=== PATIENT | male | born 1970 | race Caucasian/White ===

== ENCOUNTER 2017-10-16 17:03 | Emergency (ER) | payer MEDICARE, OTHER ==
[~2017-10-16] VITALS: Ht 188 cm; Wt 102.5 kg
[~2017-10-16 17:03] MED LIST: ALBIPROI; ALBU90OI INH; ALBU90OI6; ALBU90OI61 INH; ASCO500 PO; ASPI325; ASPI325 PO; ATOR40TA PO; Ativan1 MG PO; BENZ.5 PO; BENZ1 PO; BENZ2 PO; BENZTROPINE PO; BUPR100; BUSP5; Benztropine Me0.5 MG; CELE100; CLON.1 PO; CYCL10 PO; DEXL60CA3 PO; DIPATR; DIVA500EC; DULO30 PO; DULO60; DULO60 PO; ERGO400 PO; ESCI10; ESCI20; ESOM20 PO; FAMO20; FAMO20 PO; FAMO40; FISH OIL 1,0001 EAC1 PO; FISH1000; FISH1000 PO; FLAX; FLUOXETINE PO; GABA100; GABA300; GABA300 PO; GABA800 PO; GEMF600 PO; HALO.5 PO; HYDACE5 PO; HYDPAM25; HYDPAM50; HYDPAM50 PO; IBUP800; IBUP800 PO; LITH300C PO; LORA1 PO; LORATADINE10 MG PO; Loxapine10 MG PO; MILN100T; MILN100T PO; NORT10 PO; NORT25 PO; Naprosyn500 MG PO; Nortriptyline H25 MG PO; ORACONA; OXCA300; PRAZ2 PO; PROM25; PYRI100 PO; QUET25; QUET300; RANI150; RANI150 PO; RISP1 PO; ROPI2 PO; RXLORA1 PO; RXTRAM50 PO; SERT50; TIOT18; TIOT18 INH; TOCO400; TRAM50; TRAM50 PO; TRIH2; TRILEPTAL; UBID10; UBID100 PO; Vistaril50 MG PO; Vitamin D400 UNI1 PO; Zithromax250 MG PO; [UNRECOGNIZED DRUG - REMARK]; [UNRECOGNIZED DRUG - REMARK]; [UNRECOGNIZED DRUG - REMARK]
[2017-10-16 17:40] LABS: BASOPHILS ABSOLUTE AUTO 0.09 K/mm3 (0.00-0.23); BASOPHILS PERCENT AUTO 1 % (0-2); EOSINOPHILS ABSOLUTE AUTO 0.34 K/mm3 (0.00-0.68); EOSINOPHILS PERCENT AUTO 5 % (0-6); Hematocrit 46.2 % (37.0-53.0); Hemoglobin 15.5 g/dL (13.5-17.5); IMMATURE GRAN ABSOLUTE AUTO 0.04 K/mm3 (0.00-0.10); IMMATURE GRAN PERCENT AUTO 1 % (0-1); LYMPHOCYTES ABSOLUTE AUTO 2.15 K/mm3 (0.84-5.20); LYMPHOCYTES PERCENT AUTO 31 % (21-46); MONOCYTES ABSOLUTE AUTO 0.78 K/mm3 (0.16-1.47); MONOCYTES PERCENT AUTO 11 % (4-13); Mean Corpuscular HGB 30.9 pg (26.0-34.0); Mean Corpuscular HGB Conc 33.5 g/dL (31.5-36.5); Mean Corpuscular Volume 92 fL (80-100); Mean Platelet Volume 9.5 fL (9.1-12.4); NEUTROPHILS ABSOLUTE AUTO 3.49 K/mm3 (1.96-9.15); NEUTROPHILS PERCENT AUTO 51 % (41-73); Platelet Count 246 K/mm3 (150-400); RDW Coefficient Variation 12.3 % (11.7-14.2); RDW Standard Deviation 41.8 fL (35.1-46.3); Red Blood Cell Count 5.01 M/mm3 (4.30-5.90); White Blood Cell Count 6.89 K/mm3 (4.00-11.30)
[2017-10-16 17:54] LABS: Alanine Aminotransfer (ALT/SGP 27 U/L (12-78); Albumin, Blood 3.6 g/dL (3.4-5.0); Albumin/Globulin Ratio 1.1 (0.8-1.8); Alk Phos 47 U/L (50-136); Anion Gap 9 mmol/L (6-16); Aspartate Aminotrans (AST/SGOT 33 U/L (12-37); Bilirubin, Total 0.4 mg/dL (0.1-1.0); Blood Urea Nitrogen 21 mg/dL (8-24); Bun/Creatinine Ratio 23.9 (12.0-20.0); CO2, Blood 22 mmol/L (21-32); Calcium, Blood 8.2 mg/dL (8.5-10.1); Chloride, Blood 108 mmol/L (98-108); Creatinine, Blood 0.88 mg/dL (0.60-1.20); Ethanol (Alcohol), Blood, Med <3 mg/dL; Globulin, Blood 3.2 g/dL (2.2-4.0); Glomerular Filtration Rate >60 (60-); Glucose, Blood 98 mg/dL (70-99); Potassium, Blood 4.4 mmol/L (3.5-5.5); Sodium, Blood 139 mmol/L (136-145); Total Protein, Blood 6.8 g/dL (6.4-8.2); Troponin I <0.015 ng/mL (0.000-0.040)
[2017-10-16 18:39] LABS: U Amphetamine Screen Not Detected; U Barbituate Screen Not Detected; U Benzodiazapine Screen Not Detected; U Buprenorphine Screen Not Detected; U Cannabinoids Screen Not Detected; U Cocaine Screen Not Detected; U Methadone Screen Not Detected; U Methamphetamine Screen Not Detected; U Opiates Screen Not Detected; U Oxycodone Screen Not Detected; U Phencyclidine Screen Not Detected
[2017-10-16 18:40] LABS: U Propoxyphene Screen Not Detected
[2017-10-16] MEDS ORDERED: Pepcid40 MG PO (19:14)
[2018-08-23] MEDS ORDERED: ALBU90OI INH (15:58)
[2018-08-23] MEDS ORDERED: GABA300 (15:58)
== END 2017-10-16 19:26 | disposition home or self-care (01) ==
LOC: ER 17:03
PROVIDERS: Emergency Medicine; Physician Assistant
DX: R07.9 Chest pain, unspecified (principal); K44.9 Diaphragmatic hernia without obstruction or gangrene; G31.84 Mild cognitive impairment of uncertain or unknown etiology; Z88.8 Allergy status to other drugs, medicaments and biological substances; Z79.899 Other long term (current) drug therapy; Z79.82 Long term (current) use of aspirin; F41.9 Anxiety disorder, unspecified; Z87.891 Personal history of nicotine dependence
CPT/HCPCS: 36415; 71046; 80053; 84484; 85025; 93005; 93010; 96374; 99284; G0480; J1885

== ENCOUNTER 2017-12-04 16:08 | Emergency (ER) | payer MEDICARE, OTHER ==
[~2017-12-04] VITALS: Ht 188 cm; Wt 98.0 kg
[~2017-12-04 16:08] MED LIST changes: +Pepcid40 MG PO
[2017-12-04 16:37] LABS: Source, Urine Clean Catch
[2017-12-04 16:57] LABS: Bilirubin, Urine Neg (Neg); Blood, Urine Neg (Neg); Glucose Qualitative, Urine Neg (Neg); Ketones, Urine Neg (Neg); Leukocyte Esterase, Urine Neg (Neg); Nitrite, Urine Neg (Neg); Protein, Urine Neg (Neg); Specific Gravity, Urine 1.025 (1.003-1.022); Urobilinogen, Urine NORM (Normal)
[2017-12-04 16:58] LABS: BASOPHILS ABSOLUTE AUTO 0.11 K/mm3 (0.00-0.23); BASOPHILS PERCENT AUTO 1 % (0-2); EOSINOPHILS ABSOLUTE AUTO 0.33 K/mm3 (0.00-0.68); EOSINOPHILS PERCENT AUTO 4 % (0-6); Hematocrit 47.2 % (37.0-53.0); Hemoglobin 16.1 g/dL (13.5-17.5); IMMATURE GRAN ABSOLUTE AUTO 0.03 K/mm3 (0.00-0.10); IMMATURE GRAN PERCENT AUTO 0 % (0-1); LYMPHOCYTES ABSOLUTE AUTO 2.03 K/mm3 (0.84-5.20); LYMPHOCYTES PERCENT AUTO 25 % (21-46); MONOCYTES ABSOLUTE AUTO 0.94 K/mm3 (0.16-1.47); MONOCYTES PERCENT AUTO 12 % (4-13); Mean Corpuscular HGB Conc 34.1 g/dL (31.5-36.5); Mean Corpuscular Volume 91 fL (80-100); Mean Platelet Volume 9.5 fL (9.1-12.4); NEUTROPHILS ABSOLUTE AUTO 4.56 K/mm3 (1.96-9.15); NEUTROPHILS PERCENT AUTO 57 % (41-73); Platelet Count 263 K/mm3 (150-400); RDW Coefficient Variation 12.6 % (11.7-14.2); RDW Standard Deviation 41.8 fL (35.1-46.3); Red Blood Cell Count 5.19 M/mm3 (4.30-5.90)
[2017-12-04 17:08] LABS: Alanine Aminotransfer (ALT/SGP 32 U/L (12-78); Albumin, Blood 3.6 g/dL (3.4-5.0); Albumin/Globulin Ratio 1.1 (0.8-1.8); Alk Phos 59 U/L (50-136); Anion Gap 11 mmol/L (6-16); Aspartate Aminotrans (AST/SGOT 39 U/L (12-37); Bilirubin, Total 0.3 mg/dL (0.1-1.0); Blood Urea Nitrogen 21 mg/dL (8-24); Bun/Creatinine Ratio 25.7 (12.0-20.0); CO2, Blood 17 mmol/L (21-32); Calcium, Blood 8.4 mg/dL (8.5-10.1); Chloride, Blood 106 mmol/L (98-108); Creatinine, Blood 0.82 mg/dL (0.60-1.20); Globulin, Blood 3.4 g/dL (2.2-4.0); Glomerular Filtration Rate >60 (60-); Glucose, Blood 117 mg/dL (70-99); Potassium, Blood 4.1 mmol/L (3.5-5.5); Sodium, Blood 134 mmol/L (136-145)
[2017-12-04 17:09] LABS: Appearance, Urine Clear (Clear); Color, Urine Yellow (P-Yellow)
[2018-08-23] MEDS ORDERED: GABA300 (15:58)
[2018-08-23] MEDS ORDERED: ALBU90OI INH (15:58)
== END 2017-12-04 18:18 | disposition home or self-care (01) ==
LOC: ER 16:08
PROVIDERS: Emergency Medicine
DX: R10.11 Right upper quadrant pain (principal); K21.9 Gastro-esophageal reflux disease without esophagitis; E11.9 Type 2 diabetes mellitus without complications
CPT/HCPCS: 36415; 76705; 80053; 81003; 83690; 85025; 93005; 93010; 99284

== ENCOUNTER 2018-01-06 14:27 | Observation (INO) | payer MEDICARE, OTHER ==
[~2018-01-06] VITALS: Ht 180.3 cm; Wt 99.4 kg
[2018-01-06 14:54] LABS: BASOPHILS ABSOLUTE AUTO 0.04 K/mm3 (0.00-0.23); BASOPHILS PERCENT AUTO 1 % (0-2); EOSINOPHILS ABSOLUTE AUTO 0.12 K/mm3 (0.00-0.68); EOSINOPHILS PERCENT AUTO 1 % (0-6); Hematocrit 51.3 % (37.0-53.0); Hemoglobin 17.3 g/dL (13.5-17.5); IMMATURE GRAN ABSOLUTE AUTO 0.03 K/mm3 (0.00-0.10); IMMATURE GRAN PERCENT AUTO 0 % (0-1); LYMPHOCYTES ABSOLUTE AUTO 2.29 K/mm3 (0.84-5.20); LYMPHOCYTES PERCENT AUTO 27 % (21-46); MONOCYTES ABSOLUTE AUTO 0.77 K/mm3 (0.16-1.47); MONOCYTES PERCENT AUTO 9 % (4-13); Mean Corpuscular HGB 31.2 pg (26.0-34.0); Mean Corpuscular HGB Conc 33.7 g/dL (31.5-36.5); Mean Corpuscular Volume 92 fL (80-100); Mean Platelet Volume 9.5 fL (9.1-12.4); NEUTROPHILS ABSOLUTE AUTO 5.11 K/mm3 (1.96-9.15); NEUTROPHILS PERCENT AUTO 61 % (41-73); Platelet Count 269 K/mm3 (150-400); RDW Coefficient Variation 13.1 % (11.7-14.2); RDW Standard Deviation 44.3 fL (35.1-46.3); Red Blood Cell Count 5.55 M/mm3 (4.30-5.90); White Blood Cell Count 8.36 K/mm3 (4.00-11.30)
[2018-01-06 15:16] LABS: Alanine Aminotransfer (ALT/SGP 34 U/L (12-78); Albumin, Blood 4.1 g/dL (3.4-5.0); Albumin/Globulin Ratio 1.2 (0.8-1.8); Alk Phos 65 U/L (50-136); Anion Gap 6 mmol/L (6-16); Aspartate Aminotrans (AST/SGOT 38 U/L (12-37); Bilirubin, Total 0.6 mg/dL (0.1-1.0); Blood Urea Nitrogen 10 mg/dL (8-24); CO2, Blood 24 mmol/L (21-32); Calcium, Blood 9.2 mg/dL (8.5-10.1); Chloride, Blood 111 mmol/L (98-108); Creatinine, Blood 0.77 mg/dL (0.60-1.20); Ethanol (Alcohol), Blood, Med <3 mg/dL; Globulin, Blood 3.3 g/dL (2.2-4.0); Glomerular Filtration Rate >60 (60-); Glucose, Blood 111 mg/dL (70-99); Potassium, Blood 4.1 mmol/L (3.5-5.5); Salicylate <1.7 mg/dL (2.8-20.0); Sodium, Blood 141 mmol/L (136-145); Total Protein, Blood 7.4 g/dL (6.4-8.2)
[2018-01-06 15:27] LABS: Acetaminophen, Random <2.0 ug/mL (10.0-30.0); Troponin I <0.015 ng/mL (0.000-0.040)
[2018-01-06 15:28] LABS: Thyroid Stimulating Hormone 0.283 uIU/mL (0.360-4.800)
[2018-01-06 16:43] LABS: Source, Urine Clean Catch
[2018-01-06 16:52] LABS: Bilirubin, Urine Neg (Neg); Blood, Urine Neg (Neg); Glucose Qualitative, Urine Neg (Neg); Ketones, Urine Neg (Neg); Leukocyte Esterase, Urine Neg (Neg); Nitrite, Urine Neg (Neg); Protein, Urine Neg (Neg); Urobilinogen, Urine NORM (Normal)
[2018-01-06 16:58] LABS: Appearance, Urine Clear (Clear); Color, Urine Yellow (P-Yellow)
[2018-01-06 17:03] LABS: U Amphetamine Screen Not Detected; U Barbituate Screen Not Detected; U Benzodiazapine Screen Not Detected; U Buprenorphine Screen Not Detected; U Cannabinoids Screen Not Detected; U Cocaine Screen Not Detected; U Methadone Screen Not Detected; U Methamphetamine Screen Not Detected; U Opiates Screen Not Detected; U Phencyclidine Screen Not Detected
[2018-01-06 17:04] LABS: U Oxycodone Screen Not Detected; U Propoxyphene Screen Not Detected
[2018-01-06 21:47] LABS: Free Thyroxine 0.89 ng/dL (0.70-1.60)
[2018-01-07 04:46] LABS: BASOPHILS ABSOLUTE AUTO 0.06 K/mm3 (0.00-0.23); BASOPHILS PERCENT AUTO 1 % (0-2); EOSINOPHILS ABSOLUTE AUTO 0.23 K/mm3 (0.00-0.68); EOSINOPHILS PERCENT AUTO 4 % (0-6); Hematocrit 47.7 % (37.0-53.0); IMMATURE GRAN ABSOLUTE AUTO 0.02 K/mm3 (0.00-0.10); IMMATURE GRAN PERCENT AUTO 0 % (0-1); LYMPHOCYTES ABSOLUTE AUTO 1.61 K/mm3 (0.84-5.20); LYMPHOCYTES PERCENT AUTO 26 % (21-46); MONOCYTES ABSOLUTE AUTO 0.59 K/mm3 (0.16-1.47); MONOCYTES PERCENT AUTO 10 % (4-13); Mean Corpuscular HGB 30.9 pg (26.0-34.0); Mean Corpuscular HGB Conc 33.5 g/dL (31.5-36.5); Mean Corpuscular Volume 92 fL (80-100); Mean Platelet Volume 9.7 fL (9.1-12.4); NEUTROPHILS PERCENT AUTO 59 % (41-73); Platelet Count 260 K/mm3 (150-400); RDW Coefficient Variation 12.9 % (11.7-14.2); RDW Standard Deviation 43.8 fL (35.1-46.3); Red Blood Cell Count 5.17 M/mm3 (4.30-5.90); White Blood Cell Count 6.11 K/mm3 (4.00-11.30)
[2018-01-07 05:03] LABS: Alanine Aminotransfer (ALT/SGP 30 U/L (12-78); Albumin, Blood 3.5 g/dL (3.4-5.0); Albumin/Globulin Ratio 1.1 (0.8-1.8); Alk Phos 54 U/L (50-136); Anion Gap 8 mmol/L (6-16); Aspartate Aminotrans (AST/SGOT 27 U/L (12-37); Bilirubin, Total 0.7 mg/dL (0.1-1.0); Blood Urea Nitrogen 8 mg/dL (8-24); Bun/Creatinine Ratio 10.4 (12.0-20.0); CO2, Blood 26 mmol/L (21-32); Calcium, Blood 8.7 mg/dL (8.5-10.1); Chloride, Blood 108 mmol/L (98-108); Creatinine, Blood 0.77 mg/dL (0.60-1.20); Globulin, Blood 3.1 g/dL (2.2-4.0); Glomerular Filtration Rate >60 (60-); Glucose, Blood 92 mg/dL (70-99); Potassium, Blood 3.8 mmol/L (3.5-5.5); Sodium, Blood 142 mmol/L (136-145); Total Protein, Blood 6.6 g/dL (6.4-8.2)
== END 2018-01-07 13:20 | disposition home or self-care (01) ==
LOC: ER 14:27 → MEDS 14:28 → ENPENDDIS 01-07 09:52 → MEDS 01-07 13:20
PROVIDERS: Emergency Medicine; Internal Medicine
DX: R41.82 Altered mental status, unspecified (principal); M79.7 Fibromyalgia; K58.9 Irritable bowel syndrome, unspecified; J45.909 Unspecified asthma, uncomplicated; K21.9 Gastro-esophageal reflux disease without esophagitis; I10 Essential (primary) hypertension; R94.6 Abnormal results of thyroid function studies; Z79.82 Long term (current) use of aspirin; Z79.899 Other long term (current) drug therapy; Z88.8 Allergy status to other drugs, medicaments and biological substances
CPT/HCPCS: 36415; 70450; 71045; 80053; 81003; 84439; 84443; 84484; 85025; 93005; 93010; 94640; 94760; 96361; 96372; 96374; 99285; G0378; G0480; J1650; J2405; J7030; Q3014

== ENCOUNTER 2018-02-09 15:33 | Emergency (ER) | payer MEDICARE ==
[~2018-02-09] VITALS: Ht 188 cm; Wt 99.8 kg
== END 2018-02-09 21:11 | disposition home or self-care (01) ==
LOC: ER 15:33
DX: R25.1 Tremor, unspecified (principal); Z88.8 Allergy status to other drugs, medicaments and biological substances; Z79.899 Other long term (current) drug therapy; F41.9 Anxiety disorder, unspecified; Z87.891 Personal history of nicotine dependence

== ENCOUNTER 2018-05-31 12:53 | Emergency (ER) | payer MEDICARE, OTHER ==
[~2018-05-31] VITALS: Ht 188 cm; Wt 99.3 kg
== END 2018-05-31 15:19 | disposition home or self-care (01) ==
LOC: ER 12:53
DX: M25.551 Pain in right hip (principal); Z88.8 Allergy status to other drugs, medicaments and biological substances; Z79.899 Other long term (current) drug therapy; F41.9 Anxiety disorder, unspecified; Z87.891 Personal history of nicotine dependence
CPT/HCPCS: 96372; 99283; J1885

== ENCOUNTER 2018-09-20 10:10 | Inpatient (IN) | payer OTHER ==
[~2018-09-20] VITALS: Ht 188 cm; Wt 93.0 kg
[2018-09-20 11:26] LABS: BASOPHILS ABSOLUTE AUTO 0.06 K/mm3 (0.00-0.23); BASOPHILS PERCENT AUTO 1 % (0-2); EOSINOPHILS ABSOLUTE AUTO 0.02 K/mm3 (0.00-0.68); EOSINOPHILS PERCENT AUTO 0 % (0-6); Hematocrit 37.5 % (37.0-53.0); Hemoglobin 12.5 g/dL (13.5-17.5); IMMATURE GRAN ABSOLUTE AUTO 0.05 K/mm3 (0.00-0.10); IMMATURE GRAN PERCENT AUTO 0 % (0-1); LYMPHOCYTES ABSOLUTE AUTO 0.99 K/mm3 (0.84-5.20); LYMPHOCYTES PERCENT AUTO 8 % (21-46); MONOCYTES ABSOLUTE AUTO 1.43 K/mm3 (0.16-1.47); MONOCYTES PERCENT AUTO 11 % (4-13); Mean Corpuscular HGB 30.1 pg (26.0-34.0); Mean Corpuscular HGB Conc 33.3 g/dL (31.5-36.5); Mean Corpuscular Volume 90 fL (80-100); Mean Platelet Volume 9.5 fL (9.1-12.4); NEUTROPHILS ABSOLUTE AUTO 10.01 K/mm3 (1.96-9.15); NEUTROPHILS PERCENT AUTO 80 % (41-73); Platelet Count 263 K/mm3 (150-400); RDW Coefficient Variation 12.4 % (11.7-14.2); RDW Standard Deviation 41.1 fL (35.1-46.3); Red Blood Cell Count 4.15 M/mm3 (4.30-5.90); White Blood Cell Count 12.56 K/mm3 (4.00-11.30)
[2018-09-20 11:47] LABS: Alanine Aminotransfer (ALT/SGP 29 U/L (12-78); Albumin, Blood 3.3 g/dL (3.4-5.0); Albumin/Globulin Ratio 0.9 (0.8-1.8); Alk Phos 120 U/L (50-136); Anion Gap 8 mmol/L (6-16); Aspartate Aminotrans (AST/SGOT 29 U/L (12-37); Blood Urea Nitrogen 10 mg/dL (8-24); Bun/Creatinine Ratio 11.3 (12.0-20.0); CO2, Blood 23 mmol/L (21-32); Calcium, Blood 8.1 mg/dL (8.5-10.1); Chloride, Blood 100 mmol/L (98-108); Creatinine, Blood 0.88 mg/dL (0.60-1.20); Globulin, Blood 3.5 g/dL (2.2-4.0); Glomerular Filtration Rate >60 (60-); Glucose, Blood 122 mg/dL (70-99); Potassium, Blood 3.9 mmol/L (3.5-5.5); Sodium, Blood 131 mmol/L (136-145); Total Protein, Blood 6.8 g/dL (6.4-8.2)
[2018-09-20 11:59] LABS: BODY FLUID RBC 0.162 (0-0); RBC Count, Synovial Fluid 162000 /mm3 (0-0)
[2018-09-20 12:15] LABS: WBC Count, Synovial Fluid 177520 /mm3 (0-180)
[2018-09-20 12:16] LABS: Appearance, Synovial Fluid Cloudy (Clear); Color, Synovial Fluid Red (None-P Yel)
[2018-09-20 12:36] LABS: Lymphs, Synovial Fluid 1 % (0-15); Monocytes/Macrophages, Synovia 4 % (0-65); Neutrophils, Synovial Fluid 95 % (0-24)
[2018-09-20 12:37] LABS: Crystals, Synovial Fluid Not Seen (Not Seen)
[2018-09-20 12:39] LABS: Body Fluid Crystals NEG (NEGATIVE)
[2018-09-20 12:58] LABS: Glucose, Body Fluid <1 mg/dL
--- NOTE | 2018-09-20 17:09 | NUR ---
SHIFT SUMMARY PATIENT ADMITTED FOR L ELBOW ABCESS OR BURSITIS. PATIENT HAS BEEN PLEASANT, HAS SOME DEFICITS MENTALLY AND DOES NOT TAKE CARE OF HIMSELF WELL. THE PATIENT SMELLED OF URINE WHEN HE CAME TO THE UNIT, WHILE GIVING A BEDBATH THE PATIENT WAS UNDRESSING AND HIS UNDERGARMENTS WERE SOILED AND LOOKED THOUGH THEY HAD BEEN SOILED FOR QUITE SOME TIME AND MORE THAN ONCE. THE PATIENT ANSWERS APPROPRIATELY ALTHOUGH SLOWLY. HAS RECIEVED HIS FLU SHOT, AND ALSO HIS LOVENOX. TAKES ALL MEDICATIONS. PATIENT HAS SIMONE DRAIN IN HIS LEFT ELBOW PLACED BY DR. DELAROSA TODAY BEFORE COMING TO THE FLOOR. DRAINING WELL, PATIENT STRUGGLES WITH REMEMBERING THAT THE DRAIN IS THERE. HE FORGETS TO TAKE THE DRAIN WITH HIM. WILL REMIND THE PATIENT.
[2018-09-21 03:58] LABS: BASOPHILS ABSOLUTE AUTO 0.07 K/mm3 (0.00-0.23); BASOPHILS PERCENT AUTO 1 % (0-2); EOSINOPHILS PERCENT AUTO 3 % (0-6); Hemoglobin 12.1 g/dL (13.5-17.5); IMMATURE GRAN ABSOLUTE AUTO 0.03 K/mm3 (0.00-0.10); IMMATURE GRAN PERCENT AUTO 0 % (0-1); LYMPHOCYTES ABSOLUTE AUTO 1.57 K/mm3 (0.84-5.20); LYMPHOCYTES PERCENT AUTO 22 % (21-46); MONOCYTES ABSOLUTE AUTO 1.12 K/mm3 (0.16-1.47); MONOCYTES PERCENT AUTO 15 % (4-13); Mean Corpuscular HGB 31.1 pg (26.0-34.0); Mean Corpuscular HGB Conc 33.6 g/dL (31.5-36.5); Mean Corpuscular Volume 93 fL (80-100); Mean Platelet Volume 9.1 fL (9.1-12.4); NEUTROPHILS PERCENT AUTO 59 % (41-73); Platelet Count 269 K/mm3 (150-400); RDW Coefficient Variation 12.6 % (11.7-14.2); RDW Standard Deviation 42.9 fL (35.1-46.3); Red Blood Cell Count 3.89 M/mm3 (4.30-5.90); White Blood Cell Count 7.29 K/mm3 (4.00-11.30)
[2018-09-21 04:17] LABS: Alanine Aminotransfer (ALT/SGP 23 U/L (12-78); Albumin/Globulin Ratio 0.9 (0.8-1.8); Alk Phos 108 U/L (50-136); Anion Gap 5 mmol/L (6-16); Aspartate Aminotrans (AST/SGOT 20 U/L (12-37); Bilirubin, Total 0.7 mg/dL (0.1-1.0); Blood Urea Nitrogen 12 mg/dL (8-24); Bun/Creatinine Ratio 13.2 (12.0-20.0); CO2, Blood 27 mmol/L (21-32); Calcium, Blood 8.4 mg/dL (8.5-10.1); Chloride, Blood 103 mmol/L (98-108); Creatinine, Blood 0.91 mg/dL (0.60-1.20); Globulin, Blood 3.4 g/dL (2.2-4.0); Glomerular Filtration Rate >60 (60-); Glucose, Blood 97 mg/dL (70-99); Magnesium, Blood 2.2 mg/dL (1.6-2.4); Potassium, Blood 4.2 mmol/L (3.5-5.5); Sodium, Blood 135 mmol/L (136-145); Total Protein, Blood 6.4 g/dL (6.4-8.2)
--- NOTE | 2018-09-21 04:58 | NUR ---
SUMMARY ASPIRATION TO LEFT ELBOW ON 09/20/18 PT HAS DONE WELL THROUGH THE NIGHT. DRSG REMAINS C/D/I. 10 ML SEROSANGUINOUS FLUID NOTED IN SIMONE. PT IS INDEPENDENT IN THE ROOM. TOLERATING PO INTAKE. CALL LIGHT IN REACH, WCTM
--- NOTE | 2018-09-21 17:48 | NUR ---
SHIFT SUMMARY NO ACUTE CHANGES THIS SHIFT. VSS. PT DENIES PAIN TO L ELBOW. LOLA WRAP REMAINS CDI. SIMONE WITH MINIMAL DRAINAGE OUT. PT SBA IN ROOM TO USE THE RESTROOM. BAHMAN REG DIET. USES CALL LIGHT. PLAN IS TO CONTINUE IV ABX AND WAITING CULTURE RESULTS.
--- NOTE | 2018-09-22 06:52 | NUR ---
SUMMARY PT SLEEPING THIS AM. ANTIBIOTICS INFUSING.PT IN NO DISTRESS TONIGHT. PT DID HAVE INCONTINENCE OF URINE TONIGHT.
--- NOTE | 2018-09-22 09:29 | NUR ---
CALLED DR CLIFTON Meyers/ORTHOSTATIC VS.
--- NOTE | 2018-09-22 11:39 | NUR ---
THERAPY WORKING W/PT.
[2018-09-22] MEDS ORDERED: GABA300 PO (11:54)
[2018-09-22] MEDS ORDERED: ACET325 PO (11:55)
[2018-09-22] MEDS ORDERED: CRANBERRY450 MG PO (12:05)
[2018-09-22] MEDS ORDERED: DICL250 PO (12:07)
--- NOTE | 2018-09-22 13:36 | NUR ---
CALLED PRESCRIPTIONS TO [facility].
--- NOTE | 2018-09-22 15:14 | NUR ---
DISCHARGED REVIEWED DC PAPERWORK W/PT. REVIEWED WOUND CARE, MEDICATIONS AND F/U APPOINTMENTS. PT LEFT UNIT IN WC, FATHER WAITING OUT IN PARKING LOT TO GIVE RIDE HOME.
== END 2018-09-22 15:14 | disposition home or self-care (01) | DRG 558 ==
LOC: ER 10:10 → SURS 11:43
PROVIDERS: Physician Assistant; ADMIT Internal Medicine
PROC: 0M9 Bursae and Ligaments, Drainage (ICD-10-PCS; principal; 2018-09-20)
DX: M71.122 Other infective bursitis, left elbow (principal); M79.7 Fibromyalgia; K58.9 Irritable bowel syndrome, unspecified; K21.9 Gastro-esophageal reflux disease without esophagitis; E11.9 Type 2 diabetes mellitus without complications; M19.90 Unspecified osteoarthritis, unspecified site; F25.9 Schizoaffective disorder, unspecified; S50.00XA Contusion of unspecified elbow, initial encounter; Z87.891 Personal history of nicotine dependence; F42.9 Obsessive-compulsive disorder, unspecified; B95.61 Methicillin susceptible Staphylococcus aureus infection as the cause of diseases classified elsewhere
CPT/HCPCS: 20605; 23930; 36415; 73080; 80053; 82945; 82947; 83735; 85025; 85651; 86141; 87070; 87075; 87077; 87147; 87186; 87205; 89051; 89060; 90686; 93306; 94640; 94760; 96365; 97110; 97162; 97530; 99285-25; J0690; J1650; J1885; J3370; J7050

== ENCOUNTER 2018-10-10 08:00 | Day surgery (SDC) | payer OTHER ==
[~2018-10-10 08:00] MED LIST changes: +ACET325 PO; +CRANBERRY450 MG PO; +DICL250 PO
== END 2018-10-10 22:47 | disposition home or self-care (01) ==
LOC: WOUND 08:00
DX: Z48.01 Encounter for change or removal of surgical wound dressing (principal); T81.31XA Disruption of external operation (surgical) wound, not elsewhere classified, initial encounter; M70.22 Olecranon bursitis, left elbow; I10 Essential (primary) hypertension; J44.9 Chronic obstructive pulmonary disease, unspecified; E78.5 Hyperlipidemia, unspecified
CPT/HCPCS: G0463

== ENCOUNTER 2018-10-13 10:15 | Day surgery (SDC) | payer OTHER | END 2018-10-13 22:52 | disposition home or self-care (01) | LOC: WOUND 10:15 | DX: T81.31XA Disruption of external operation (surgical) wound, not elsewhere classified, initial encounter (principal); M70.22 Olecranon bursitis, left elbow | CPT/HCPCS: G0463 ==

== ENCOUNTER 2018-10-17 11:03 | Day surgery (SDC) | payer OTHER | END 2018-10-17 22:56 | disposition home or self-care (01) | LOC: WOUND 11:03 | DX: T81.31XA Disruption of external operation (surgical) wound, not elsewhere classified, initial encounter (principal); M70.22 Olecranon bursitis, left elbow; J44.9 Chronic obstructive pulmonary disease, unspecified; I10 Essential (primary) hypertension; F42.9 Obsessive-compulsive disorder, unspecified; E11.9 Type 2 diabetes mellitus without complications | CPT/HCPCS: G0463 ==

== ENCOUNTER 2018-10-20 10:06 | Day surgery (SDC) | payer OTHER ==
[2018-10-20] MEDS ORDERED: Norco 5-325 Ta1 EACH PO (13:38)
== END 2018-10-20 12:22 | disposition home or self-care (01) ==
LOC: WOUND 10:06
DX: T81.31XA Disruption of external operation (surgical) wound, not elsewhere classified, initial encounter (principal); M70.22 Olecranon bursitis, left elbow
CPT/HCPCS: G0463

== ENCOUNTER 2018-10-20 12:01 | Emergency (ER) | payer OTHER ==
[~2018-10-20] VITALS: Ht 188 cm; Wt 90.3 kg
[2018-10-20 13:00] LABS: Calcium, Ionized (POC) 1.19 mmol/L (1.10-1.46); Chloride (POC) 106 mmol/L (98-108); Creatinine (POC) 0.8 mg/dL (0.8-1.3); Glucose (ISTAT POC) 132 mg/dL (70-99); Hemoglobin (POC) 14.3 g/dL (13.5-17.5); Potassium (POC) 4.5 mmol/L (3.5-5.5); Sodium (POC) 138 mmol/L (135-148); Total CO2 (POC) 21 mmol/L (21-32)
[2018-10-20] MEDS ORDERED: Norco 5-325 Ta1 EACH PO (13:38)
== END 2018-10-20 14:02 | disposition home or self-care (01) ==
LOC: ER 12:01
PROVIDERS: Physician Assistant
DX: S22.42XA Multiple fractures of ribs, left side, initial encounter for closed fracture (principal); K21.9 Gastro-esophageal reflux disease without esophagitis; E11.9 Type 2 diabetes mellitus without complications; Z79.899 Other long term (current) drug therapy; Z88.8 Allergy status to other drugs, medicaments and biological substances; W18.2XXA Fall in (into) shower or empty bathtub, initial encounter; Y92.002 Bathroom of unspecified non-institutional (private) residence as the place of occurrence of the external cause
CPT/HCPCS: 36415; 71101; 80047; 85014; 99283-25

== ENCOUNTER 2018-10-24 08:31 | Day surgery (SDC) | payer OTHER ==
[~2018-10-24 08:31] MED LIST changes: +Norco 5-325 Ta1 EACH PO
== END 2018-10-24 22:42 | disposition home or self-care (01) ==
LOC: WOUND 08:31
DX: T81.31XA Disruption of external operation (surgical) wound, not elsewhere classified, initial encounter (principal); S51.002A Unspecified open wound of left elbow, initial encounter; M70.22 Olecranon bursitis, left elbow; B95.61 Methicillin susceptible Staphylococcus aureus infection as the cause of diseases classified elsewhere; J44.9 Chronic obstructive pulmonary disease, unspecified; I10 Essential (primary) hypertension; F25.1 Schizoaffective disorder, depressive type; E78.5 Hyperlipidemia, unspecified; E11.9 Type 2 diabetes mellitus without complications
CPT/HCPCS: G0463

== ENCOUNTER 2018-10-31 08:30 | Day surgery (SDC) | payer OTHER | END 2018-10-31 22:41 | disposition home or self-care (01) | LOC: WOUND 08:30 | DX: Z48.01 Encounter for change or removal of surgical wound dressing (principal); T81.31XA Disruption of external operation (surgical) wound, not elsewhere classified, initial encounter; M70.22 Olecranon bursitis, left elbow; J44.9 Chronic obstructive pulmonary disease, unspecified; I10 Essential (primary) hypertension; E78.5 Hyperlipidemia, unspecified; E11.9 Type 2 diabetes mellitus without complications | CPT/HCPCS: G0463 ==

== ENCOUNTER 2019-02-02 10:25 | Emergency (ER) | payer OTHER ==
[~2019-02-02] VITALS: Ht 188 cm; Wt 91.6 kg
== END 2019-02-02 11:59 | disposition home or self-care (01) ==
LOC: ER 10:25
DX: M70.21 Olecranon bursitis, right elbow (principal); F41.9 Anxiety disorder, unspecified; M79.7 Fibromyalgia; Z88.8 Allergy status to other drugs, medicaments and biological substances; Z79.899 Other long term (current) drug therapy; Z87.891 Personal history of nicotine dependence
CPT/HCPCS: 73080; 99283-25

== ENCOUNTER 2019-02-13 21:16 | Emergency (ER) | payer OTHER ==
[~2019-02-13] VITALS: Ht 188 cm; Wt 90.7 kg
[2019-02-13 21:58] LABS: BASOPHILS ABSOLUTE AUTO 0.06 K/mm3 (0.00-0.23); BASOPHILS PERCENT AUTO 1 % (0-2); EOSINOPHILS ABSOLUTE AUTO 0.09 K/mm3 (0.00-0.68); EOSINOPHILS PERCENT AUTO 1 % (0-6); Hematocrit 49.8 % (37.0-53.0); Hemoglobin 16.3 g/dL (13.5-17.5); IMMATURE GRAN ABSOLUTE AUTO 0.08 K/mm3 (0.00-0.10); IMMATURE GRAN PERCENT AUTO 1 % (0-1); LYMPHOCYTES PERCENT AUTO 11 % (21-46); MONOCYTES ABSOLUTE AUTO 0.63 K/mm3 (0.16-1.47); MONOCYTES PERCENT AUTO 6 % (4-13); Mean Corpuscular HGB 29.6 pg (26.0-34.0); Mean Corpuscular HGB Conc 32.7 g/dL (31.5-36.5); Mean Corpuscular Volume 91 fL (80-100); Mean Platelet Volume 9.8 fL (9.1-12.4); NEUTROPHILS PERCENT AUTO 81 % (41-73); Platelet Count 350 K/mm3 (150-400); RDW Coefficient Variation 12.8 % (11.7-14.2); RDW Standard Deviation 42.6 fL (35.1-46.3); White Blood Cell Count 10.76 K/mm3 (4.00-11.30)
[2019-02-13 22:16] LABS: Alanine Aminotransfer (ALT/SGP 32 U/L (12-78); Albumin, Blood 3.5 g/dL (3.4-5.0); Albumin/Globulin Ratio 0.9 (0.8-1.8); Alk Phos 89 U/L (50-136); Anion Gap 8 mmol/L (6-16); Aspartate Aminotrans (AST/SGOT 47 U/L (12-37); Bilirubin, Total 0.6 mg/dL (0.1-1.0); Blood Urea Nitrogen 9 mg/dL (8-24); CO2, Blood 26 mmol/L (21-32); Calcium, Blood 9.2 mg/dL (8.5-10.1); Chloride, Blood 107 mmol/L (98-108); Creatinine, Blood 0.69 mg/dL (0.60-1.20); Globulin, Blood 4.1 g/dL (2.2-4.0); Glomerular Filtration Rate >60 (60-); Glucose, Blood 93 mg/dL (70-99); International Normalized Ratio 1.05; Prothrombin Time Results 11.1 Sec (9.7-11.5); Sodium, Blood 141 mmol/L (136-145); Total Protein, Blood 7.6 g/dL (6.4-8.2)
[2019-02-13 22:17] LABS: Ethanol (Alcohol), Blood, Med <3 mg/dL
[2019-02-13 22:54] LABS: U Amphetamine Screen Not Detected; U Barbituate Screen Not Detected; U Benzodiazapine Screen Not Detected; U Buprenorphine Screen Not Detected; U Cannabinoids Screen Not Detected; U Cocaine Screen Not Detected; U Methadone Screen Not Detected; U Methamphetamine Screen Not Detected; U Opiates Screen Not Detected; U Oxycodone Screen Not Detected; U Phencyclidine Screen Not Detected; U Propoxyphene Screen Not Detected
== END 2019-02-14 00:20 | disposition short-term general hospital (02) ==
LOC: ER 21:16
PROVIDERS: Emergency Medicine
DX: I62.9 Nontraumatic intracranial hemorrhage, unspecified (principal); R91.8 Other nonspecific abnormal finding of lung field; Z88.8 Allergy status to other drugs, medicaments and biological substances; Z79.899 Other long term (current) drug therapy; F41.9 Anxiety disorder, unspecified; Z87.891 Personal history of nicotine dependence
CPT/HCPCS: 36415; 51701; 70450; 71045; 80053; 82947; 85025; 85610; 93005; 93010; 96365-59; 96375-59; 99285-25; G0480; J2060

== ENCOUNTER → 2020-01-16 | Outpatient (CLI) | payer OTHER ==
[2020-01-16 14:03] LABS: Valproic Acid 49.9 ug/mL (50.0-100.0)
== END | disposition home or self-care (01) ==
LOC: LAB 12:46 → LAB SHORT 12:46
PROVIDERS: Psychiatry & Neurology Psychiatry
DX: Z51.81 Encounter for therapeutic drug level monitoring (principal); Z79.899 Other long term (current) drug therapy
CPT/HCPCS: 80164

== ENCOUNTER → 2020-05-16 | Outpatient (CLI) | payer OTHER ==
[2020-05-16 13:27] LABS: Valproic Acid 61.8 ug/mL (50.0-100.0)
== END | disposition home or self-care (01) ==
LOC: LAB SHORT 10:08 → LAB 10:08
PROVIDERS: Psychiatry & Neurology Psychiatry
DX: Z51.81 Encounter for therapeutic drug level monitoring (principal); Z79.899 Other long term (current) drug therapy
CPT/HCPCS: 80164

== ENCOUNTER → 2020-09-18 | Outpatient (CLI) | payer OTHER ==
[2020-09-18 15:39] LABS: Valproic Acid 53.2 ug/mL (50.0-100.0)
== END | disposition home or self-care (01) ==
LOC: LAB SHORT 13:00
PROVIDERS: Psychiatry & Neurology Psychiatry
DX: Z51.81 Encounter for therapeutic drug level monitoring (principal); Z79.899 Other long term (current) drug therapy
CPT/HCPCS: 80164

== ENCOUNTER → 2021-01-15 | Outpatient (CLI) | payer OTHER | END | disposition home or self-care (01) | LOC: LAB SHORT 12:33 | PROVIDERS: Psychiatry & Neurology Psychiatry | DX: Z51.81 Encounter for therapeutic drug level monitoring (principal); Z79.899 Other long term (current) drug therapy | CPT/HCPCS: 80164 ==

== ENCOUNTER → 2021-01-27 | Outpatient (CLI) | payer OTHER ==
[2021-01-27 19:13] LABS: Source, Urine Clean Catch
[2021-01-27 20:00] LABS: Bilirubin, Urine Neg (Neg); Blood, Urine Neg (Neg); Glucose Qualitative, Urine Neg (Neg); Ketones, Urine Neg (Neg); Leukocyte Esterase, Urine Neg (Neg); Nitrite, Urine Neg (Neg); Protein, Urine Neg (Neg); Urobilinogen, Urine NORM (Normal); pH, Urine 6.5 (5.0-8.0)
[2021-01-27 20:31] LABS: Appearance, Urine Clear (Clear); Color, Urine Yellow (P-Yellow)
== END | disposition home or self-care (01) ==
LOC: PLD 15:05 → LAB SHORT 15:05
PROVIDERS: Family Medicine
DX: N39.0 Urinary tract infection, site not specified (principal)
CPT/HCPCS: 81003

== ENCOUNTER → 2021-03-26 | Outpatient (CLI) | payer OTHER | END | disposition home or self-care (01) | LOC: LAB SHORT 07:45 → LAB 07:45 | DX: E87.6 Hypokalemia (principal); E55.9 Vitamin D deficiency, unspecified | CPT/HCPCS: 82306 ==

== ENCOUNTER → 2021-05-16 | Outpatient (CLI) | payer OTHER ==
[2021-05-16 15:00] LABS: Valproic Acid 62.9 ug/mL (50.0-100.0)
== END ==
LOC: LAB SHORT 13:08 → LAB 13:08
PROVIDERS: Psychiatry & Neurology Psychiatry
DX: Z51.81 Encounter for therapeutic drug level monitoring (principal); Z79.899 Other long term (current) drug therapy
CPT/HCPCS: 80164

== ENCOUNTER 2021-06-19 13:53 | Emergency (ER) | payer OTHER ==
[~2021-06-19] VITALS: Ht 188 cm; Wt 127.9 kg
[2021-06-19] MEDS ORDERED: IBUP800 PO (14:31)
[2021-06-19] MEDS ORDERED: DIVA500EC PO (14:31)
[2021-06-19] MEDS ORDERED: PREG150 PO (14:32)
[2021-06-19] MEDS ORDERED: OLAN20 MM (14:32)
[2021-06-19] MEDS ORDERED: Primidone50 MG PO (14:33)
[2021-06-19] MEDS ORDERED: SENN187 PO (14:33)
[2021-06-19] MEDS ORDERED: TOPI50 PO (14:34)
[2021-06-19] MEDS ORDERED: THERA-D2000 UNIT PO (14:35)
[2021-06-19 15:01] LABS: BASOPHILS ABSOLUTE AUTO 0.06 K/mm3 (0.00-0.23); BASOPHILS PERCENT AUTO 1 % (0-2); EOSINOPHILS ABSOLUTE AUTO 0.09 K/mm3 (0.00-0.68); EOSINOPHILS PERCENT AUTO 2 % (0-6); Hematocrit 50.6 % (37.0-53.0); Hemoglobin 16.7 g/dL (13.5-17.5); IMMATURE GRAN ABSOLUTE AUTO 0.07 K/mm3 (0.00-0.10); IMMATURE GRAN PERCENT AUTO 1 % (0-1); LYMPHOCYTES ABSOLUTE AUTO 1.18 K/mm3 (0.84-5.20); LYMPHOCYTES PERCENT AUTO 20 % (21-46); MONOCYTES ABSOLUTE AUTO 0.45 K/mm3 (0.16-1.47); MONOCYTES PERCENT AUTO 8 % (4-13); Mean Corpuscular Volume 94 fL (80-100); Mean Platelet Volume 10.8 fL (9.1-12.4); NEUTROPHILS ABSOLUTE AUTO 4.06 K/mm3 (1.96-9.15); NEUTROPHILS PERCENT AUTO 69 % (41-73); Platelet Count 159 K/mm3 (150-400); RDW Coefficient Variation 12.7 % (11.7-14.2); RDW Standard Deviation 43.7 fL (35.1-46.3); Red Blood Cell Count 5.38 M/mm3 (4.30-5.90); White Blood Cell Count 5.91 K/mm3 (4.00-11.30)
[2021-06-19 15:37] LABS: Alanine Aminotransfer (ALT/SGP 54 U/L (12-78); Albumin, Blood 3.2 g/dL (3.4-5.0); Albumin/Globulin Ratio 0.9 (0.8-1.8); Alk Phos 51 U/L (50-136); Anion Gap 7 mmol/L (6-16); Aspartate Aminotrans (AST/SGOT 42 U/L (12-37); Bilirubin, Direct <0.1 mg/dL (0.0-0.3); Bilirubin, Indirect Unable to Calculate mg/dL (0.1-0.7); Bilirubin, Total 0.4 mg/dL (0.1-1.0); Blood Urea Nitrogen 15 mg/dL (8-24); Bun/Creatinine Ratio 15.7 (12.0-20.0); CO2, Blood 22 mmol/L (21-32); Calcium, Blood 8.7 mg/dL (8.5-10.1); Chloride, Blood 109 mmol/L (98-108); Creatinine, Blood 0.95 mg/dL (0.60-1.20); Globulin, Blood 3.5 g/dL (2.2-4.0); Glomerular Filtration Rate >60 (60-); Glucose, Blood 103 mg/dL (70-99); Potassium, Blood 4.3 mmol/L (3.5-5.5); Sodium, Blood 138 mmol/L (136-145); Total Protein, Blood 6.7 g/dL (6.4-8.2); Troponin I <0.015 ng/mL (0.000-0.040)
[2021-06-19] MEDS ORDERED: PRED20 PO (19:35)
== END 2021-06-19 20:00 | disposition home or self-care (01) ==
LOC: ER 13:53
PROVIDERS: Student in an Organized Health Care Education/Training Program
DX: J45.901 Unspecified asthma with (acute) exacerbation (principal); R42 Dizziness and giddiness; Z88.8 Allergy status to other drugs, medicaments and biological substances; Z79.899 Other long term (current) drug therapy
CPT/HCPCS: 36415; 71046; 80048; 80076; 83690; 83880; 84484; 85025; 93005; 93010; 94640; 94644; 96374; 99285-25; J2405; J7030; J7512

== ENCOUNTER → 2021-06-25 | Outpatient (CLI) | payer OTHER ==
[~2021-06-25] MED LIST changes: +DIVA500EC PO; +OLAN20 MM; +PRED20 PO; +PREG150 PO; +Primidone50 MG PO; +SENN187 PO; +THERA-D2000 UNIT PO; +TOPI50 PO
== END | disposition home or self-care (01) ==
LOC: LAB SHORT 08:20
DX: E55.9 Vitamin D deficiency, unspecified (principal)
CPT/HCPCS: 82306

== ENCOUNTER → 2021-11-05 | Outpatient (CLI) | payer OTHER ==
[2021-11-05 20:20] LABS: Appearance, Urine Clear (Clear); Bilirubin, Urine Neg (Neg); Blood, Urine Neg (Neg); Color, Urine Yellow (P-Yellow); Glucose Qualitative, Urine Neg (Neg); Ketones, Urine Neg (Neg); Leukocyte Esterase, Urine Neg (Neg); Nitrite, Urine Neg (Neg); Protein, Urine Neg (Neg); Specific Gravity, Urine 1.005 (1.003-1.022); Urobilinogen, Urine NORM (Normal)
== END ==
LOC: LAB SHORT 11:30 → LAB 11:30
PROVIDERS: Family Medicine
DX: N39.0 Urinary tract infection, site not specified (principal)
CPT/HCPCS: 81003

== ENCOUNTER → 2021-11-11 | Outpatient (CLI) | payer OTHER ==
[2021-11-11 09:47] LABS: BASOPHILS ABSOLUTE AUTO 0.05 K/mm3 (0.00-0.23); BASOPHILS PERCENT AUTO 1 % (0-2); EOSINOPHILS ABSOLUTE AUTO 0.19 K/mm3 (0.00-0.68); EOSINOPHILS PERCENT AUTO 4 % (0-6); Hematocrit 47.3 % (37.0-53.0); Hemoglobin 16.2 g/dL (13.5-17.5); IMMATURE GRAN ABSOLUTE AUTO 0.02 K/mm3 (0.00-0.10); IMMATURE GRAN PERCENT AUTO 0 % (0-1); LYMPHOCYTES ABSOLUTE AUTO 1.88 K/mm3 (0.84-5.20); LYMPHOCYTES PERCENT AUTO 36 % (21-46); MONOCYTES ABSOLUTE AUTO 0.52 K/mm3 (0.16-1.47); MONOCYTES PERCENT AUTO 10 % (4-13); Mean Corpuscular HGB 31.5 pg (26.0-34.0); Mean Corpuscular HGB Conc 34.2 g/dL (31.5-36.5); Mean Corpuscular Volume 92 fL (80-100); Mean Platelet Volume 10.6 fL (9.1-12.4); NEUTROPHILS ABSOLUTE AUTO 2.56 K/mm3 (1.96-9.15); NEUTROPHILS PERCENT AUTO 49 % (41-73); Platelet Count 200 K/mm3 (150-400); RDW Coefficient Variation 12.2 % (11.7-14.2); RDW Standard Deviation 41.7 fL (35.1-46.3); Red Blood Cell Count 5.15 M/mm3 (4.30-5.90); White Blood Cell Count 5.22 K/mm3 (4.00-11.30)
[2021-11-11 10:01] LABS: Alanine Aminotransfer (ALT/SGP 23 U/L (12-78); Albumin, Blood 3.3 g/dL (3.4-5.0); Albumin/Globulin Ratio 1.2 (0.8-1.8); Alk Phos 43 U/L (50-136); Anion Gap 5 mmol/L (6-16); Aspartate Aminotrans (AST/SGOT 12 U/L (12-37); Bilirubin, Total 0.5 mg/dL (0.1-1.0); Blood Urea Nitrogen 15 mg/dL (8-24); Bun/Creatinine Ratio 17.3 (12.0-20.0); CO2, Blood 26 mmol/L (21-32); Calcium, Blood 8.4 mg/dL (8.5-10.1); Chloride, Blood 113 mmol/L (98-108); Creatinine, Blood 0.87 mg/dL (0.60-1.20); Globulin, Blood 2.8 g/dL (2.2-4.0); Glomerular Filtration Rate >60 (60-); Glucose, Blood 91 mg/dL (70-99); Potassium, Blood 4.7 mmol/L (3.5-5.5); Sodium, Blood 144 mmol/L (136-145); Thyroid Stimulating Hormone 0.725 uIU/mL (0.360-4.800); Total Protein, Blood 6.1 g/dL (6.4-8.2)
== END ==
LOC: LAB 07:45 → LAB SHORT 07:45
PROVIDERS: Family Medicine
DX: E03.9 Hypothyroidism, unspecified (principal); I10 Essential (primary) hypertension; E11.9 Type 2 diabetes mellitus without complications
CPT/HCPCS: 80053; 84443; 85025

== ENCOUNTER → 2022-09-23 | Outpatient (CLI) | payer OTHER ==
[~2022-09-23] MED LIST changes: +Amlodipine Bes2.5 MG PO; +HYDHCL25; +LOPE2C PO; +ONDA4
[2022-09-23 14:43] LABS: Valproic Acid 42.8 ug/mL (50.0-100.0)
== END | disposition home or self-care (01) ==
LOC: LAB SHORT 09:57
PROVIDERS: Psychiatry & Neurology Psychiatry
DX: Z51.81 Encounter for therapeutic drug level monitoring (principal)
CPT/HCPCS: 80164

== ENCOUNTER → 2022-12-30 | Outpatient (CLI) | payer OTHER ==
[2022-12-30 14:56] LABS: Valproic Acid 39.7 ug/mL (50.0-100.0)
== END | disposition home or self-care (01) ==
LOC: LAB SHORT 07:47 → LAB 07:47
PROVIDERS: Psychiatry & Neurology Psychiatry
DX: Z51.81 Encounter for therapeutic drug level monitoring (principal); Z79.899 Other long term (current) drug therapy
CPT/HCPCS: 80164

== ENCOUNTER → 2023-05-27 | Outpatient (CLI) | payer OTHER ==
[2023-05-27 14:53] LABS: Valproic Acid 36.1 ug/mL (50.0-100.0)
== END | disposition home or self-care (01) ==
LOC: LAB SHORT 10:32 → LAB 10:32
PROVIDERS: Psychiatry & Neurology Psychiatry
DX: Z51.81 Encounter for therapeutic drug level monitoring (principal); Z79.899 Other long term (current) drug therapy
CPT/HCPCS: 80164

== ENCOUNTER → 2023-10-06 | Outpatient (CLI) | payer OTHER ==
[~2023-10-06] MED LIST changes: +DERMACINRX FOL1 EAC2 PO; -HYDHCL25; +HYDHCL25 PO; +OMEP20ER PO
[2023-10-06 15:12] LABS: Valproic Acid 64.3 ug/mL (50.0-100.0)
== END ==
LOC: LAB 09:53 → LAB SHORT 09:53
PROVIDERS: Psychiatry & Neurology Psychiatry
DX: Z51.81 Encounter for therapeutic drug level monitoring (principal)
CPT/HCPCS: 80164

== ENCOUNTER 2023-10-14 08:18 | Emergency (ER) | payer OTHER ==
[~2023-10-14] VITALS: Ht 188 cm; Wt 131.5 kg
[2023-10-14 10:03] LABS: Source, Urine Clean Catch
[2023-10-14 10:16] LABS: BASOPHILS ABSOLUTE AUTO 0.09 K/mm3 (0.00-0.23); BASOPHILS PERCENT AUTO 2 % (0-2); EOSINOPHILS ABSOLUTE AUTO 0.19 K/mm3 (0.00-0.68); EOSINOPHILS PERCENT AUTO 4 % (0-6); Hemoglobin 15.7 g/dL (13.5-17.5); IMMATURE GRAN ABSOLUTE AUTO 0.07 K/mm3 (0.00-0.10); IMMATURE GRAN PERCENT AUTO 1 % (0-1); LYMPHOCYTES ABSOLUTE AUTO 1.64 K/mm3 (0.84-5.20); LYMPHOCYTES PERCENT AUTO 31 % (21-46); MONOCYTES ABSOLUTE AUTO 0.61 K/mm3 (0.16-1.47); MONOCYTES PERCENT AUTO 12 % (4-13); Mean Corpuscular HGB 31.4 pg (26.0-34.0); Mean Corpuscular HGB Conc 34.9 g/dL (31.5-36.5); Mean Corpuscular Volume 90 fL (80-100); Mean Platelet Volume 9.9 fL (9.1-12.4); NEUTROPHILS ABSOLUTE AUTO 2.65 K/mm3 (1.96-9.15); NEUTROPHILS PERCENT AUTO 51 % (41-73); Platelet Count 233 K/mm3 (150-400); RDW Coefficient Variation 12.1 % (11.7-14.2); RDW Standard Deviation 39.8 fL (35.1-46.3); White Blood Cell Count 5.25 K/mm3 (4.00-11.30)
[2023-10-14 10:20] LABS: Bilirubin, Urine Neg (Neg); Blood, Urine Neg (Neg); Glucose Qualitative, Urine Neg (Neg); Ketones, Urine Neg (Neg); Leukocyte Esterase, Urine Neg (Neg); Nitrite, Urine Neg (Neg); Protein, Urine Neg (Neg); Urobilinogen, Urine NORM (Normal)
[2023-10-14 10:30] LABS: Appearance, Urine Clear (Clear); Color, Urine Yellow (P-Yellow)
[2023-10-14 10:34] LABS: Albumin, Blood 3.4 g/dL (3.4-5.0); Albumin/Globulin Ratio 1.1 (0.8-1.8); Bilirubin, Total 0.3 mg/dL (0.1-1.0); Bun/Creatinine Ratio 5.4 (12.0-20.0); Calcium, Blood 8.5 mg/dL (8.5-10.1); Creatinine, Blood 0.92 mg/dL (0.60-1.20); Potassium, Blood 4.2 mmol/L (3.5-5.5); Total Protein, Blood 6.4 g/dL (6.4-8.2)
[2023-10-14 11:10] VITALS: BP 118/85
== END 2023-10-14 11:11 | disposition home or self-care (01) ==
LOC: ER 08:18
PROVIDERS: Physician Assistant
DX: M79.651 Pain in right thigh (principal); Z87.891 Personal history of nicotine dependence; M79.7 Fibromyalgia
CPT/HCPCS: 80053; 81003; 85025; 99283; A9270

== ENCOUNTER → 2023-12-20 | Outpatient (CLI) | payer OTHER ==
[2023-12-21 15:53] LABS: Source, Urine Clean Catch
[2023-12-21 17:04] LABS: Appearance, Urine Clear (Clear); Bilirubin, Urine Neg (Neg); Blood, Urine Neg (Neg); Color, Urine Yellow (P-Yellow); Glucose Qualitative, Urine Neg (Neg); Ketones, Urine Neg (Neg); Leukocyte Esterase, Urine Neg (Neg); Nitrite, Urine Neg (Neg); Protein, Urine Neg (Neg); Specific Gravity, Urine 1.005 (1.003-1.022); Urobilinogen, Urine NORM (Normal)
== END ==
LOC: LAB 11:00 → LAB SHORT 11:00
PROVIDERS: Family Medicine
DX: N39.0 Urinary tract infection, site not specified (principal)
CPT/HCPCS: 81003

== ENCOUNTER 2024-03-29 08:14 | Inpatient (IN) | payer OTHER ==
[~2024-03-29] VITALS: Ht 185.4 cm; Wt 142.9 kg
[~2024-03-29 08:14] MED LIST changes: +DIVA250ER PO; -DIVA500EC PO; -HYDHCL25 PO; +HYDPAM25 PO; +LORA.5 PO; +OLAN10 PO; -OLAN20 MM
[2024-03-29] MEDS ORDERED: Ipratropium/Albuterol SulF 2.5-0.5MG/3 ML Amp INH ONE (09:45)
[2024-03-29 10:10] LABS: BASOPHILS ABSOLUTE AUTO 0.07 K/mm3 (0.00-0.23); BASOPHILS PERCENT AUTO 1 % (0-2); EOSINOPHILS ABSOLUTE AUTO 0.16 K/mm3 (0.00-0.68); EOSINOPHILS PERCENT AUTO 2 % (0-6); Hematocrit 46.2 % (37.0-53.0); IMMATURE GRAN ABSOLUTE AUTO 0.14 K/mm3 (0.00-0.10); IMMATURE GRAN PERCENT AUTO 2 % (0-1); LYMPHOCYTES ABSOLUTE AUTO 1.45 K/mm3 (0.84-5.20); LYMPHOCYTES PERCENT AUTO 20 % (21-46); MONOCYTES ABSOLUTE AUTO 0.78 K/mm3 (0.16-1.47); MONOCYTES PERCENT AUTO 11 % (4-13); Mean Corpuscular HGB Conc 34.6 g/dL (31.5-36.5); Mean Corpuscular Volume 90 fL (80-100); Mean Platelet Volume 9.1 fL (9.1-12.4); NEUTROPHILS ABSOLUTE AUTO 4.68 K/mm3 (1.96-9.15); NEUTROPHILS PERCENT AUTO 64 % (41-73); Platelet Count 253 K/mm3 (150-400); RDW Coefficient Variation 12.5 % (11.7-14.2); RDW Standard Deviation 41.2 fL (35.1-46.3); Red Blood Cell Count 5.16 M/mm3 (4.30-5.90); White Blood Cell Count 7.28 K/mm3 (4.00-11.30)
[2024-03-29 10:27] LABS: Base Excess Venous -1.5 mmol/L; Bicarbonate Venous 22.1 mmol/L (24.0-30.0); PCO2 Venous 48 mmHg (38-42); pH Blood Venous 7.32 (7.34-7.37)
[2024-03-29 10:39] LABS: Albumin, Blood 3.7 g/dL (3.4-5.0); Bilirubin, Total 0.4 mg/dL (0.1-1.0); Bun/Creatinine Ratio 7.7 (12.0-20.0); Creatinine, Blood 0.91 mg/dL (0.60-1.20); Globulin, Blood 3.7 g/dL (2.2-4.0); Potassium, Blood 4.9 mmol/L (3.5-5.5); Total Protein, Blood 7.4 g/dL (6.4-8.2)
[2024-03-29] MEDS ORDERED: Docusate Sodium/Senna 1 Tab PO PRN (12:15)
[2024-03-29] MEDS ORDERED: LORazepam 2 MG/ML 1ML Injection IV PRN (12:15)
[2024-03-29] MEDS ORDERED: Acetaminophen 650 MG Supp PR PRN (12:20)
[2024-03-29] MEDS ORDERED: Bisacodyl 10 MG Supp PR PRN (12:20)
[2024-03-29] MEDS ORDERED: Ondansetron 4 MG TAB PO PRN (12:25)
[2024-03-29] MEDS ORDERED: Magnesium Hydroxide Conc 10 ML UDC PO PRN (12:25)
[2024-03-29] MEDS ORDERED: Zolpidem Tartrate 5 MG Tab PO PRN (12:25)
[2024-03-29] MEDS ORDERED: Topiramate 25 MG Tab PO SCH (13:00)
[2024-03-29] MEDS ORDERED: OLOPATADINE HC2.5 ML BOTHEYES (13:53)
[2024-03-29] MEDS ORDERED: BUDESONIDE-FO10.2 G3 INH (13:53)
[2024-03-29] MEDS ORDERED: Cetirizine HCl10 MG PO (13:54)
[2024-03-29] MEDS ORDERED: TAMSULOSIN HCL0.4 M1 PO (13:57)
[2024-03-29] MEDS ORDERED: Divalproex Sodium 125 MG CAP PO SCH (14:00)
[2024-03-29 14:42] VITALS: BP 143/92
[2024-03-29] MEDS ORDERED: Ipratropium/Albuterol SulF 2.5-0.5MG/3 ML Amp INH SCH (15:00)
[2024-03-29] MEDS ORDERED: Divalproex Sodium 500 MG TABCR PO SCH (15:05)
[2024-03-29] MEDS ORDERED: Primidone 50 MG Tab PO SCH ×2 (16:00→21:00)
--- NOTE | 2024-03-29 16:20 | NUR ---
ADMIT PT ADMITTED TODAY. ORIENTED TO ROOM. BEVERAGE PROVIDED. TELE IN PLACE. RUNNING SINUS TACH AT 103 WHEN PLACED. PT DENIES PAIN. RT NOTIFIED OF WHEEZINESS AND BREATHING TREATMENT REQUESTED. PT VISITING [facility] OPERATOR IN ROOM. CALL LIGHT IN REACH. CALLING FOR ASSISTANCE PRIOR TO GETTING OOB
[2024-03-29] MEDS ORDERED: DULCOLAX400 MG/5 M PO (16:34)
[2024-03-29] MEDS ORDERED: ONDA4ODT MM (16:34)
--- NOTE | 2024-03-29 17:26 | NUR ---
SHIFT SUMMARY PT SET UP WITH CONT PULSE OX. CPAP ORDER PLACED PATIENT ORDERS FROM [facility] STATE THAT HE USES ONE. PT STATES HE HAS NOT USED ONE IN A WHILE, BUE WILL IF STAFF IS WANTING HIM TWO. PT IS CONT/INCONT OF URINE. CALLS FOR ASSISTANCE WITH URINAL. TELE IN PLACE-RUNNING NSR. PT HAS HARCH NON-PRODUCTIVE COUGH. BREATHING TREATMENTS STARTED PER RT. [facility] MED REC FAXED AND UPDATED IN THE COMPUTER. NO OTHER ACUTE CHANGES IN ASSESSMENT AT THIS TIME.
[2024-03-29] MEDS ORDERED: Acetaminophen325 M1 PO (17:27)
[2024-03-29] MEDS ORDERED: VITAMIN D5000 UNIT PO (17:27)
[2024-03-29] MEDS ORDERED: ALBU8HFA2 INH (17:28)
[2024-03-29] MEDS ORDERED: BISA10S PR (17:28)
[2024-03-29] MEDS ORDERED: LOPE2C PO (17:30)
[2024-03-29] MEDS ORDERED: HYDPAM25 PO (17:30)
[2024-03-29] MEDS ORDERED: LORA.5 PO (17:31)
--- NOTE | 2024-03-29 17:54 | NUR ---
COUGH PT C/O COUGH. TESSALON VON ADDED PER DR. JEFFERSON WELL GUAIFENESIN 600 MG BID.
[2024-03-29] MEDS ORDERED: Benzonatate 100 MG Cap PO PRN (17:55)
[2024-03-29 20:06] VITALS: BP 149/97
[2024-03-29] MEDS ORDERED: GuaiFENesin 600 MG TabCR PO SCH (21:00)
[2024-03-29] MEDS ORDERED: Lactobacil 2-S.Thermo-Bifido 1 1 Cap PO SCH (21:00)
[2024-03-29] MEDS ORDERED: Famotidine 20 MG Tab PO SCH (21:00)
[2024-03-29] MEDS ORDERED: Enoxaparin 120 MG/0.8 ML SYR SC SCH (21:00)
[2024-03-29] MEDS ORDERED: OLANZapine 10 MG Tab PO SCH (21:00)
[2024-03-29] MEDS ORDERED: Acetaminophen 325 MG TABLET PO PRN (22:11)
[2024-03-30 05:20] LABS: Hematocrit 43.3 % (37.0-53.0); Hemoglobin 15.2 g/dL (13.5-17.5); Mean Corpuscular HGB 31.1 pg (26.0-34.0); Mean Corpuscular HGB Conc 35.1 g/dL (31.5-36.5); Mean Corpuscular Volume 89 fL (80-100); Mean Platelet Volume 9.5 fL (9.1-12.4); Platelet Count 292 K/mm3 (150-400); RDW Coefficient Variation 12.7 % (11.7-14.2); RDW Standard Deviation 41.1 fL (35.1-46.3); Red Blood Cell Count 4.88 M/mm3 (4.30-5.90); White Blood Cell Count 6.66 K/mm3 (4.00-11.30)
[2024-03-30 05:39] VITALS: BP 146/91
[2024-03-30 05:44] LABS: Bun/Creatinine Ratio 10.2 (12.0-20.0); Calcium, Blood 8.5 mg/dL (8.5-10.1); Creatinine, Blood 0.88 mg/dL (0.60-1.20); Magnesium, Blood 1.8 mg/dL (1.6-2.4); Potassium, Blood 4.3 mmol/L (3.5-5.5)
--- NOTE | 2024-03-30 06:51 | NUR ---
SUMMARY- PT REMAINS WHEEZY WITH HACKING COUGH. PT REPORTS DYSPNEA W EXERTION. PT INCONTINET AT TIMES. PT WEARING A PULL UP. PT DOES AMBULATE TO BATHROOM WITH SBA. PT DENIES CX PAIN W/ SOB. PT DID REPORT DISCOMFORT POST LOVENOX INJECTION. PT REMAINS SPO2 >90'S ON ROOM AIR. PROVIDER CALLED AND ORDERED ABG TO BE CANCEL PER RT RECOMMENDATION. CALL LIGHT IN REACH AND PT CALLS APPROPIATELY.
[2024-03-30 07:07] VITALS: BP 142/90
[2024-03-30] MEDS ORDERED: Rivaroxaban 10 MG Tab PO SCH (09:00)
[2024-03-30] MEDS ORDERED: AmLODIPine Besylate 5 MG Tab PO SCH (09:00)
--- NOTE | 2024-03-30 09:00 | NUR ---
pt laying in bed awake a/ox4, forgetful, cooperative with care, follows commands well, reports some rib pain, tylenol given for that, takes po meds without diff, lungs are course with exp wheezing t/o and harsh cough, on cont ox, cpap at night, on r/a, hrr, tele in place running sr with pvc's per monitor, see strip, no edema noted, ppp+2, cap refill< 3 sec, vs stable, afebrile, piv to rac, site is clear and patent, btx4, abd flat soft nontender, voids without diff, skin c/w/d, maew, rabia, call light in reach.
--- NOTE | 2024-03-30 11:57 | NUR ---
"Spiritual Care Attempted | Pt. Request Pt. is sitting on the side of his bed when he intially welcomed my visit. After introductions the Pt. graciously declines spiritual care, but verbalized gratitude forthe spiritual care attempt."
[2024-03-30 15:37] VITALS: BP 141/79
--- NOTE | 2024-03-30 18:48 | NUR ---
pt resting quietly this after noon, gets himself up in room, will go back to [facility] tomorrow after xarelto is administered. no acute changes this shift. call light in reach.
[2024-03-30 19:50] VITALS: BP 143/91
[2024-03-31 03:05] VITALS: BP 146/98
[2024-03-31 07:16] VITALS: BP 130/95
[2024-03-31] MEDS ORDERED: GUAI600T33 PO (11:15)
[2024-03-31] MEDS ORDERED: PRED20 PO (11:16)
[2024-03-31] MEDS ORDERED: IPRAT-ALBUT 0.5-3 ML INH (11:16)
[2024-03-31] MEDS ORDERED: XARELTO20 MG PO (11:17)
--- NOTE | 2024-03-31 13:08 | NUR ---
PATIENT DISCHARGE: PATIENT DISCHARGED TO HOME ([facility]) THIS SHIFT. MEDICATION RECONCILIATION COMPLETED; MED LIST PROVIDED IN DISCHARGE PACKET FOR [facility]. PATIENT TRANSPORTED TO EXIT BY AMBULANCE PERSONNEL WITH WHEELCHAIR AT 1306. PATIENT DEPARTED [facility] VIA WHEELCHAIR TRANSPORT.
== END 2024-03-31 13:08 | disposition home or self-care (01) | DRG 176 ==
LOC: ER 08:14 → MEDS 12:19 → ENPENDDIS 03-31 11:08 → MEDS 03-31 13:08
PROVIDERS: Emergency Medicine; ADMIT Hospitalist
DX: I26.94 Multiple subsegmental thrombotic pulmonary emboli without acute cor pulmonale (principal); Z68.41 Body mass index [BMI] 40.0-44.9, adult; J44.1 Chronic obstructive pulmonary disease with (acute) exacerbation; E66.9 Obesity, unspecified; M79.7 Fibromyalgia; F20.9 Schizophrenia, unspecified; E11.9 Type 2 diabetes mellitus without complications; K58.9 Irritable bowel syndrome, unspecified; G47.30 Sleep apnea, unspecified; F42.9 Obsessive-compulsive disorder, unspecified; Z79.899 Other long term (current) drug therapy; Z98.890 Other specified postprocedural states
CPT/HCPCS: 36415; 71045; 71260; 80048; 80053; 82803; 83735; 83880; 84145; 85025; 85027; 85379; 94640; 94660; 94664; 94761; 94762; 99285-25; A9270; J1650; Q9967

== ENCOUNTER 2024-04-17 08:20 | Emergency (ER) | payer OTHER ==
[~2024-04-17] VITALS: Ht 188 cm; Wt 140.2 kg
[~2024-04-17 08:20] MED LIST changes: +ALBU8HFA2 INH; +Acetaminophen325 M1 PO; +BISA10S PR; +BUDESONIDE-FO10.2 G3 INH; +Cetirizine HCl10 MG PO; +DULCOLAX400 MG/5 M PO; +GUAI600T33 PO; +IPRAT-ALBUT 0.5-3 ML INH; +OLOPATADINE HC2.5 ML BOTHEYES; +ONDA4ODT MM; +TAMSULOSIN HCL0.4 M1 PO; +VITAMIN D5000 UNIT PO; +XARELTO20 MG PO
[2024-04-17] MEDS ORDERED: Ketorolac Tromethamine 15mg Vial IV ONE (08:50)
[2024-04-17 08:57] LABS: BASOPHILS ABSOLUTE AUTO 0.05 K/mm3 (0.00-0.23); BASOPHILS PERCENT AUTO 1 % (0-2); EOSINOPHILS ABSOLUTE AUTO 0.15 K/mm3 (0.00-0.68); EOSINOPHILS PERCENT AUTO 3 % (0-6); Hematocrit 48.4 % (37.0-53.0); Hemoglobin 16.3 g/dL (13.5-17.5); IMMATURE GRAN ABSOLUTE AUTO 0.03 K/mm3 (0.00-0.10); IMMATURE GRAN PERCENT AUTO 1 % (0-1); LYMPHOCYTES ABSOLUTE AUTO 1.75 K/mm3 (0.84-5.20); LYMPHOCYTES PERCENT AUTO 36 % (21-46); MONOCYTES ABSOLUTE AUTO 0.51 K/mm3 (0.16-1.47); MONOCYTES PERCENT AUTO 11 % (4-13); Mean Corpuscular HGB 30.6 pg (26.0-34.0); Mean Corpuscular HGB Conc 33.7 g/dL (31.5-36.5); Mean Corpuscular Volume 91 fL (80-100); NEUTROPHILS ABSOLUTE AUTO 2.32 K/mm3 (1.96-9.15); NEUTROPHILS PERCENT AUTO 48 % (41-73); Platelet Count 251 K/mm3 (150-400); RDW Standard Deviation 43.7 fL (35.1-46.3); Red Blood Cell Count 5.33 M/mm3 (4.30-5.90); White Blood Cell Count 4.81 K/mm3 (4.00-11.30)
[2024-04-17 09:05] LABS: Albumin, Blood 3.4 g/dL (3.4-5.0); Bilirubin, Total 0.6 mg/dL (0.1-1.0); Bun/Creatinine Ratio 7.6 (12.0-20.0); Calcium, Blood 8.8 mg/dL (8.5-10.1); Creatinine, Blood 0.79 mg/dL (0.60-1.20); Globulin, Blood 3.5 g/dL (2.2-4.0); Potassium, Blood 4.6 mmol/L (3.5-5.5); Total Protein, Blood 6.9 g/dL (6.4-8.2)
[2024-04-17 11:47] LABS: Source, Urine Clean Catch
[2024-04-17 11:57] LABS: Appearance, Urine Clear (Clear); Bilirubin, Urine Neg (Neg); Blood, Urine Neg (Neg); Glucose Qualitative, Urine Neg (Neg); Ketones, Urine Neg (Neg); Leukocyte Esterase, Urine Neg (Neg); Nitrite, Urine Neg (Neg); Protein, Urine Neg (Neg); Urobilinogen, Urine NORM (Normal)
[2024-04-17 11:59] LABS: Color, Urine Pale Yellow (P-Yellow)
[2024-04-17 12:21] VITALS: BP 148/109
== END 2024-04-17 12:20 | disposition home or self-care (01) ==
LOC: ER 08:20
PROVIDERS: Physician Assistant
DX: M54.50 Low back pain, unspecified (principal); E11.9 Type 2 diabetes mellitus without complications; J44.89 Other specified chronic obstructive pulmonary disease; Z87.891 Personal history of nicotine dependence; Z79.51 Long term (current) use of inhaled steroids; Z79.52 Long term (current) use of systemic steroids; Z79.899 Other long term (current) drug therapy; Z88.8 Allergy status to other drugs, medicaments and biological substances
CPT/HCPCS: 74177; 80053; 81003; 83690; 85025; J1885; Q9967

== ENCOUNTER 2024-09-02 09:33 | Emergency (ER) | payer OTHER ==
[~2024-09-02] VITALS: Ht 188 cm; Wt 139.7 kg
[2024-09-02] MEDS ORDERED: Acetaminophen 500 MG Tab PO ONE (10:35)
[2024-09-02] MEDS ORDERED: NS 1,000 ML IV SCH (10:35)
[2024-09-02 10:51] LABS: BASOPHILS ABSOLUTE AUTO 0.04 K/mm3 (0.00-0.23); BASOPHILS PERCENT AUTO 1 % (0-2); EOSINOPHILS PERCENT AUTO 0 % (0-6); Hematocrit 45.3 % (37.0-53.0); IMMATURE GRAN ABSOLUTE AUTO 0.07 K/mm3 (0.00-0.10); IMMATURE GRAN PERCENT AUTO 1 % (0-1); LYMPHOCYTES ABSOLUTE AUTO 0.75 K/mm3 (0.84-5.20); LYMPHOCYTES PERCENT AUTO 10 % (21-46); MONOCYTES ABSOLUTE AUTO 1.25 K/mm3 (0.16-1.47); MONOCYTES PERCENT AUTO 17 % (4-13); Mean Corpuscular HGB 31.3 pg (26.0-34.0); Mean Corpuscular HGB Conc 35.3 g/dL (31.5-36.5); Mean Corpuscular Volume 89 fL (80-100); Mean Platelet Volume 10.2 fL (9.1-12.4); NEUTROPHILS ABSOLUTE AUTO 5.42 K/mm3 (1.96-9.15); NEUTROPHILS PERCENT AUTO 72 % (41-73); Platelet Count 200 K/mm3 (150-400); RDW Coefficient Variation 12.6 % (11.7-14.2); RDW Standard Deviation 41.6 fL (35.1-46.3); Red Blood Cell Count 5.11 M/mm3 (4.30-5.90); White Blood Cell Count 7.53 K/mm3 (4.00-11.30)
[2024-09-02 11:15] LABS: Albumin, Blood 3.3 g/dL (3.4-5.0); Bilirubin, Total 0.4 mg/dL (0.1-1.0); Bun/Creatinine Ratio 7.2 (12.0-20.0); Calcium, Blood 8.5 mg/dL (8.5-10.1); Creatinine, Blood 0.98 mg/dL (0.60-1.20); Globulin, Blood 3.3 g/dL (2.2-4.0); Magnesium, Blood 2.1 mg/dL (1.6-2.4); Phosphorus, Blood 2.4 mg/dL (2.5-4.9); Total Protein, Blood 6.6 g/dL (6.4-8.2)
[2024-09-02 12:13] LABS: Influenza B, PCR NEGATIVE (NEGATIVE); Resp Syncytial Virus, PCR NEGATIVE (NEGATIVE); SARS-Cov-2 (COVID-19) PCR, MMC NEGATIVE (NEGATIVE)
[2024-09-02] MEDS ORDERED: Doxycycline Hyclate 200 MG in Dextrose 5% 500 ML IV ONE (12:15)
[2024-09-02] MEDS ORDERED: CefTRIAXone Sodium 1,000 MG in NS 100 ML IV ONE (12:15)
[2024-09-02] MEDS ORDERED: Doxycycline Hyclate 100 MG in Dextrose 5% 250 ML IV ONE (12:35)
[2024-09-02 13:28] LABS: Influenza A, PCR POSITIVE (NEGATIVE)
[2024-09-02] MEDS ORDERED: Oseltamivir Phosphate 75 MG Cap PO ONE (13:45)
[2024-09-02] MEDS ORDERED: ACET500 PO (13:56)
[2024-09-02] MEDS ORDERED: OSEL75CA PO (13:56)
[2024-09-02] MEDS ORDERED: Ipratropium/Albuterol SulF 2.5-0.5MG/3 ML Amp INH ONE (14:25)
[2024-09-02 14:30] VITALS: BP 164/106
[2024-09-02] MEDS ORDERED: ALBU90OI INH (14:45)
== END 2024-09-02 17:17 | disposition home or self-care (01) ==
LOC: ER 09:33
PROVIDERS: Emergency Medicine
DX: J11.1 Influenza due to unidentified influenza virus with other respiratory manifestations (principal); E11.9 Type 2 diabetes mellitus without complications; J44.89 Other specified chronic obstructive pulmonary disease; J90 Pleural effusion, not elsewhere classified; Z88.8 Allergy status to other drugs, medicaments and biological substances; Z79.899 Other long term (current) drug therapy; Z79.52 Long term (current) use of systemic steroids; Z87.891 Personal history of nicotine dependence
CPT/HCPCS: 0241U; 36415; 71045; 80053; 83605; 83735; 84100; 84145; 85025; 87040; 93005; 93010; 94640; 94664; 96361; 96365; 99285-25; A9270; J0696; J7030; J7060

== ENCOUNTER → 2024-10-11 | Outpatient (CLI) | payer OTHER ==
[~2024-10-11] MED LIST changes: +ACET500 PO; +OSEL75CA PO
[2024-10-12 14:53] LABS: Source, Urine Clean Catch
[2024-10-12 16:57] LABS: Appearance, Urine Clear (Clear); Bilirubin, Urine Neg (Neg); Blood, Urine Neg (Neg); Glucose Qualitative, Urine Neg (Neg); Ketones, Urine Neg (Neg); Leukocyte Esterase, Urine Neg (Neg); Nitrite, Urine Neg (Neg); Protein, Urine Neg (Neg); Specific Gravity, Urine 1.005 (1.003-1.022); Urobilinogen, Urine NORM (Normal)
[2024-10-12 17:06] LABS: Color, Urine Pale Yellow (P-Yellow)
== END ==
LOC: LAB SHORT 10-11 18:00 → LAB 18:00 → LAB SHORT 18:00
PROVIDERS: Family Medicine
DX: N39.0 Urinary tract infection, site not specified (principal)
CPT/HCPCS: 81003

== ENCOUNTER 2025-06-16 17:53 | Emergency (ER) | payer OTHER ==
[~2025-06-16] VITALS: Ht 188 cm; Wt 146.5 kg
[~2025-06-16 17:53] MED LIST changes: +ALMACONE SUSPE355 ML PO; +DOCUZEN 8.6-501 EACH PO; -DULCOLAX400 MG/5 M PO; +Milk of Magnesia PO; +Prednisone10 MG PO; -SENN187 PO
[2025-06-16] MEDS ORDERED: NS 1,000 ML IV SCH (18:40)
[2025-06-16] MEDS ORDERED: Ipratropium/Albuterol SulF 2.5-0.5MG/3 ML Amp INH ONE (18:40)
[2025-06-16 19:29] LABS: BASOPHILS ABSOLUTE AUTO 0.06 K/mm3 (0.00-0.23); BASOPHILS PERCENT AUTO 1 % (0-2); EOSINOPHILS ABSOLUTE AUTO 0.19 K/mm3 (0.00-0.68); EOSINOPHILS PERCENT AUTO 3 % (0-6); Hematocrit 47.9 % (37.0-53.0); Hemoglobin 16.2 g/dL (13.5-17.5); IMMATURE GRAN ABSOLUTE AUTO 0.03 K/mm3 (0.00-0.10); IMMATURE GRAN PERCENT AUTO 0 % (0-1); LYMPHOCYTES ABSOLUTE AUTO 2.24 K/mm3 (0.84-5.20); LYMPHOCYTES PERCENT AUTO 32 % (21-46); MONOCYTES ABSOLUTE AUTO 0.66 K/mm3 (0.16-1.47); MONOCYTES PERCENT AUTO 10 % (4-13); Mean Corpuscular HGB Conc 33.8 g/dL (31.5-36.5); Mean Corpuscular Volume 92 fL (80-100); NEUTROPHILS ABSOLUTE AUTO 3.76 K/mm3 (1.96-9.15); NEUTROPHILS PERCENT AUTO 54 % (41-73); NRBC ABSOLUTE 0.00 K/mm3 (0.00-0.02); NRBC Auto 0.0 /100 WBC (0.0-0.2); Platelet Count 231 K/mm3 (150-400); RDW Coefficient Variation 12.7 % (11.7-14.2); RDW Standard Deviation 42.8 fL (35.1-46.3)
[2025-06-16] MEDS ORDERED: PRED20 PO (19:44)
[2025-06-16] MEDS ORDERED: AMOCLA875 PO (19:44)
[2025-06-16] MEDS ORDERED: DOXY100 PO (19:44)
[2025-06-16] MEDS ORDERED: MECL25 PO (19:44)
[2025-06-16 19:50] LABS: Anion Gap 5.0 mmol/L (3-11); Blood Urea Nitrogen 12.0 mg/dL (8-24); CO2, Blood 27.0 mmol/L (21-32); Calcium, Blood 8.8 mg/dL (8.5-10.1); Chloride, Blood 108.0 mmol/L (98-108); Creatinine, Blood 0.92 mg/dL (0.60-1.20); Glucose, Blood 102.0 mg/dL (70-99); Potassium, Blood 4.1 mmol/L (3.5-5.5); Sodium, Blood 136.0 mmol/L (136-145)
[2025-06-16 21:00] VITALS: BP 126/88
== END 2025-06-16 21:24 | disposition home or self-care (01) ==
LOC: ER 17:53
PROVIDERS: Emergency Medicine
DX: J18.9 Pneumonia, unspecified organism (principal); R42 Dizziness and giddiness; Z87.891 Personal history of nicotine dependence
CPT/HCPCS: 71045; 80048; 85025; 93005; 93010; 96361; 96374; 99284-25; A9270; J2919; J7030

== ENCOUNTER 2025-07-06 19:16 | Emergency (ER) | payer OTHER ==
[~2025-07-06] VITALS: Ht 188 cm; Wt 142.9 kg
[~2025-07-06 19:16] MED LIST changes: +AMOCLA875 PO; +DOXY100 PO; +MECL25 PO
[2025-07-06] MEDS ORDERED: NS 1,000 ML IV SCH (19:35)
[2025-07-06] MEDS ORDERED: DiphenhydrAMINE HCl 50 MG/ML 1ML Vial IV ONE (19:35)
[2025-07-06] MEDS ORDERED: Dexamethasone Sod Phos 10 MG/ML 1ML VIAL IV ONE (19:35)
[2025-07-06 20:00] LABS: BASOPHILS ABSOLUTE AUTO 0.08 K/mm3 (0.00-0.23); BASOPHILS PERCENT AUTO 1 % (0-2); EOSINOPHILS ABSOLUTE AUTO 0.29 K/mm3 (0.00-0.68); EOSINOPHILS PERCENT AUTO 4 % (0-6); Hematocrit 48.9 % (37.0-53.0); Hemoglobin 16.7 g/dL (13.5-17.5); IMMATURE GRAN ABSOLUTE AUTO 0.04 K/mm3 (0.00-0.10); IMMATURE GRAN PERCENT AUTO 1 % (0-1); LYMPHOCYTES ABSOLUTE AUTO 2.54 K/mm3 (0.84-5.20); LYMPHOCYTES PERCENT AUTO 35 % (21-46); MONOCYTES ABSOLUTE AUTO 0.81 K/mm3 (0.16-1.47); MONOCYTES PERCENT AUTO 11 % (4-13); Mean Corpuscular HGB Conc 34.2 g/dL (31.5-36.5); Mean Corpuscular Volume 90 fL (80-100); NEUTROPHILS ABSOLUTE AUTO 3.60 K/mm3 (1.96-9.15); NEUTROPHILS PERCENT AUTO 49 % (41-73); NRBC ABSOLUTE 0.00 K/mm3 (0.00-0.02); NRBC Auto 0.0 /100 WBC (0.0-0.2); Platelet Count 236 K/mm3 (150-400); RDW Coefficient Variation 12.8 % (11.7-14.2); RDW Standard Deviation 42.5 fL (35.1-46.3)
[2025-07-06 20:13] VITALS: BP 112/77
[2025-07-06 20:47] LABS: Alanine Aminotransfer (ALT/SGP 46.0 U/L (12-78); Albumin, Blood 3.7 g/dL (3.4-5.0); Albumin/Globulin Ratio 1.3 (0.8-1.8); Anion Gap 7.0 mmol/L (3-11); Aspartate Aminotrans (AST/SGOT 33.0 U/L (12-37); Bilirubin, Total 0.5 mg/dL (0.1-1.0); Blood Urea Nitrogen 7.0 mg/dL (8-24); CO2, Blood 24.0 mmol/L (21-32); Calcium, Blood 9.1 mg/dL (8.5-10.1); Chloride, Blood 109.0 mmol/L (98-108); Creatinine, Blood 1.09 mg/dL (0.60-1.20); Globulin, Blood 2.9 g/dL (2.2-4.0); Glucose, Blood 99.0 mg/dL (70-99); Potassium, Blood 4.2 mmol/L (3.5-5.5); Sodium, Blood 136.0 mmol/L (136-145); Total Protein, Blood 6.6 g/dL (6.4-8.2)
== END 2025-07-06 21:59 | disposition home or self-care (01) ==
LOC: ER 19:16
PROVIDERS: Emergency Medicine
DX: R51.9 Headache, unspecified (principal); R42 Dizziness and giddiness; E11.9 Type 2 diabetes mellitus without complications; J44.89 Other specified chronic obstructive pulmonary disease; Z87.891 Personal history of nicotine dependence; Z79.52 Long term (current) use of systemic steroids; Z79.899 Other long term (current) drug therapy; Z79.51 Long term (current) use of inhaled steroids; Z88.1 Allergy status to other antibiotic agents; Z88.8 Allergy status to other drugs, medicaments and biological substances
CPT/HCPCS: 70450; 80053; 85025; 96374; 96375; 99284-25; J1100; J1200; J7030

== ENCOUNTER 2025-08-17 10:50 | Emergency (ER) | payer OTHER ==
[~2025-08-17] VITALS: Ht 188 cm; Wt 141.1 kg
[2025-08-17 12:05] LABS: BASOPHILS ABSOLUTE AUTO 0.08 K/mm3 (0.00-0.23); BASOPHILS PERCENT AUTO 1 % (0-2); EOSINOPHILS ABSOLUTE AUTO 0.13 K/mm3 (0.00-0.68); EOSINOPHILS PERCENT AUTO 1 % (0-6); Hematocrit 51.4 % (37.0-53.0); Hemoglobin 17.1 g/dL (13.5-17.5); IMMATURE GRAN ABSOLUTE AUTO 0.07 K/mm3 (0.00-0.10); IMMATURE GRAN PERCENT AUTO 1 % (0-1); LYMPHOCYTES ABSOLUTE AUTO 2.04 K/mm3 (0.84-5.20); LYMPHOCYTES PERCENT AUTO 20 % (21-46); MONOCYTES ABSOLUTE AUTO 1.13 K/mm3 (0.16-1.47); MONOCYTES PERCENT AUTO 11 % (4-13); Mean Corpuscular HGB Conc 33.3 g/dL (31.5-36.5); Mean Corpuscular Volume 92 fL (80-100); NEUTROPHILS ABSOLUTE AUTO 6.71 K/mm3 (1.96-9.15); NEUTROPHILS PERCENT AUTO 66 % (41-73); NRBC ABSOLUTE 0.00 K/mm3 (0.00-0.02); NRBC Auto 0.0 /100 WBC (0.0-0.2); Platelet Count 240 K/mm3 (150-400); RDW Coefficient Variation 12.4 % (11.7-14.2); RDW Standard Deviation 41.4 fL (35.1-46.3)
[2025-08-17 12:26] LABS: C-REACTIVE PROTEIN, EXT RANGE 3.48 mg/dL (0.000-0.300)
[2025-08-17 12:27] LABS: Anion Gap 7.0 mmol/L (3-11); Blood Urea Nitrogen 9.0 mg/dL (8-24); CO2, Blood 25.0 mmol/L (21-32); Calcium, Blood 8.9 mg/dL (8.5-10.1); Chloride, Blood 106.0 mmol/L (98-108); Creatinine, Blood 1.0 mg/dL (0.60-1.20); Glucose, Blood 99.0 mg/dL (70-99); Potassium, Blood 4.4 mmol/L (3.5-5.5); Sodium, Blood 134.0 mmol/L (136-145)
[2025-08-17] MEDS ORDERED: BACTRIM DS TAB1 EAC1 PO (13:38)
[2025-08-17] MEDS ORDERED: CEPH500 PO (13:38)
[2025-08-17] MEDS ORDERED: CefTRIAXone Sodium 1,000 MG in NS 100 ML IV ONE (13:40)
[2025-08-17 14:30] VITALS: BP 158/93
== END 2025-08-17 14:55 | disposition home or self-care (01) ==
LOC: ER 10:50
PROVIDERS: Student in an Organized Health Care Education/Training Program
DX: L03.012 Cellulitis of left finger (principal); L02.512 Cutaneous abscess of left hand; E11.9 Type 2 diabetes mellitus without complications; J44.89 Other specified chronic obstructive pulmonary disease; Z87.891 Personal history of nicotine dependence; Z79.899 Other long term (current) drug therapy; Z79.51 Long term (current) use of inhaled steroids; Z88.1 Allergy status to other antibiotic agents; Z88.8 Allergy status to other drugs, medicaments and biological substances
CPT/HCPCS: 10060; 73130; 80048; 83605; 85025; 85651; 86140; 96365-59; 99283-25; J0696